=== PATIENT | male | born 1975 | race Caucasian/White ===

== ENCOUNTER 2024-01-30 06:19 | Day surgery (SDC) | payer BC ==
[2024-01-30] MEDS: Lactated Ringers 1,000 ML IV SCH (06:45)
[2024-01-30] MEDS ORDERED: Propofol 200 MG/20 ML SDV ONE ×3 (06:54→07:44)
[2024-01-30] MEDS ORDERED: Midazolam 1 MG/ML 2 ML SDV ONE (06:54)
[2024-01-30] MEDS ORDERED: fentaNYL 50 MCG/ML SDV ONE (06:54)
== END 2024-01-30 08:51 | disposition home or self-care (01) ==
LOC: JP.SDS 06:19
PROVIDERS: ATTEND Surgery
DX: Z12.11 Encounter for screening for malignant neoplasm of colon (principal); F17.200 Nicotine dependence, unspecified, uncomplicated
CPT/HCPCS: 45378; J2250; J2704; J3010; J7120; 00812-QZ